=== PATIENT | female | born 1990 | race Caucasian/White ===

== ENCOUNTER 2019-03-15 13:41 | Emergency (ER) | payer SELFPAY ==
[2019-03-15 14:35] LABS: Absolute Lymphocytes (CBC) 1.7 K/uL (0.7-4.9); Basophils % 0.5 % (0-1.3); Eosinophils % 0.3 % (0-4.4); Hematocrit 38.8 % (36.0-45.0); Lymphocytes % 15.5 % (15.3-44.8); MPV 10.6 fL (7.6-11.3); Monocytes % 10.1 % (3.3-12.3); RBC Red Blood Cell Count 4.31 M/uL (3.86-4.86)
[2019-03-15] MEDS ORDERED: NA CHLORIDE 0.9% 500 ML ONE (14:35)
[2019-03-15 14:40] LABS: Protime INR 1.04
[2019-03-15 14:52] LABS: Urine Blood NEGATIVE (NEG); Urine Glucose NEGATIVE (NEG); Urine Protein NEGATIVE (NEG); Urine Specific Gravity 1.015 (1.005-1.030)
[2019-03-15 14:56] LABS: Urine Bacteria <20 /HPF (<20); Urine Culture Reflex Order NOT NEEDED; Urine RBC <5 /HPF (NONE SEEN)
[2019-03-15 14:56] LABS: ALT/SGPT 34 U/L (12-78); AST/SGOT 35 U/L (15-37); Albumin 3.9 g/dL (3.4-5.0); Alkaline Phosphatase 111 U/L (45-117); BUN Blood Urea Nitrogen 12 mg/dL (7-18); Bicarbonate 28 mmol/L (21-32); Bilirubin Direct 0.1 mg/dL (0-0.2); Bilirubin Total 0.3 mg/dL (0.2-1.0); Glucose Level 79 mg/dL (74-106); NT PRO-BNP 53 pg/mL (<125); Potassium 3.1 mmol/L (3.5-5.1); Protein, Total 7.6 g/dL (6.4-8.2); Sodium Level 141 mmol/L (136-145); Troponin (Emerg Dept Use Only) < 0.02 ng/mL (0.0-0.045)
--- NOTE | 2019-03-15 15:01 | RAD REPORT ---
EXAM DESCRIPTION: Sonny Single View03/15/2019 2:34 pm CLINICAL HISTORY: Chest pain COMPARISON: none FINDINGS: The lungs appear clear of acute infiltrate. The heart is normal size IMPRESSION: No acute abnormalities displayed
[2019-03-15] MEDS ORDERED: POTASSIUM 25 MEQ EFFERV TAB ONE (16:21)
--- NOTE | 2019-03-15 16:35 | ER ---
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 Pt also c/o palpitations. Pt states "I even took my Xanax because I thought I was having a panic attack but it hasn't helped". Transition of care: patient was not received from another setting of care. Onset of symptoms was March 15, 2019. Risk Assessment: Do you want to hurt yourself or someone else? Patient reports no desire to harm self or others. Initial Sepsis Screen: Does the patient meet any 2 criteria? No. Patient's initial sepsis screen is negative. Does the patient have a suspected source of infection? No. Patient's initial sepsis screen is negative. Care prior to arrival: None. 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 - Social history:: Smoking status: Patient uses tobacco products, smokes one-half pack cigarettes per day. - Ebola Screening: : No symptoms or risks identified at this time. Screenin:35 Abuse screen: Denies threats or abuse. Denies injuries from another. Nutritional aj screening: No deficits noted. Tuberculosis screening: No symptoms or risk factors identified. Fall Risk None identified. Assessment: 14:35 General: Appears in no apparent distress. comfortable, Behavior is cooperative, aj anxious. Pain: Denies pain. Neuro: Level of Consciousness is awake, alert, obeys commands, Oriented to person, place, time, situation, Appropriate for age. Respiratory: Airway is patent Respiratory effort is even, unlabored, Respiratory pattern is regular, symmetrical. Derm: Skin is intact, is healthy with good turgor, Skin is pink, warm \\T\\ dry. normal. 14:35 Cardiovascular: Reports palpitations. aj 16:42 Reassessment: Patient appears in no apparent distress at this time. No changes from aj previously documented assessment. Patient and/or family updated on plan of care and expected duration. Pain level reassessed. Patient is alert, oriented x 3, equal unlabored respirations, skin warm/dry/pink. Patient denies pain at this time. Patient states feeling better. Vital Signs: 13:50 BP 113 / 61; Pulse 109; Resp 18 S; Temp 98.2(TE); Pulse Ox 100% on R/A; Weight 86.18 kg aa5 (R); Height 5 ft. 4 in. (162.56 cm) (R); Pain 0/10; 14:35 BP 114 / 77; Pulse 97; Resp 20; Pulse Ox 100% on R/A; aj 15:19 BP 119 / 77; Pulse 115; Resp 24; Temp 98.0(O); Pulse Ox 100% on R/A; 5 16:18 BP 111 / 76; Pulse 93; Resp 20; Pulse Ox 100% on R/A; aj 13:50 Body Mass Index 32.61 (86.18 kg, 162.56 cm) aa5 ED Course: 13:42 Patient arrived in ED. as 13:49 Triage completed. aa5 13:51 Arm band placed on Patient placed in an exam room, on a stretcher. aa5 13:55 Awilda Alas, CARMELITA is Primary Nurse. aj 14:02 Etienne Hernández PA is PHCP. [facility] 14:02 Nik Bergman MD is Attending Physician. jmm 14:30 Basic Metabolic Panel Sent. aj 14:30 CBC with Diff Sent. aj 14:30 Basic Metabolic Panel Sent. aj 14:30 CBC with Automated Diff Sent. aj 14:30 Liver (Hepatic) Function Sent. aj 14:30 LFT's Sent. aj 14:30 Magnesium Sent. aj 14:30 NT PRO-BNP Sent. aj 14:30 PT-INR Sent. aj 14:30 Troponin (emerg Dept Use Only) Sent. aj 14:35 XRAY Chest (1 view) In Process Unspecified. EDMS 14:35 Patient has correct armband on for positive identification. Placed in gown. Bed in low aj position. Side rails up X 1. Pulse ox on. NIBP on. 14:35 D-Dimer Sent. aj 14:35 Liver (Hepatic) Function Sent. aj 14:35 Inserted saline lock: 22 gauge in right antecubital area, using aseptic technique. aj Blood collected. 16:42 No provider procedures requiring assistance completed. IV discontinued, intact, aj bleeding controlled, No redness/swelling at site. Pressure dressing applied. Administered Medications: 14:35 Drug: NS 0.9% 500 ml Route: IV; Rate: bolus; Site: right antecubital; aj 16:43 Follow up: Response: No adverse reaction; IV Status: Completed infusion; IV Intake: aj 500ml 16:09 Drug: Potassium Effervescent Tablet 50 mEq Route: PO; aj 16:43 Follow up: Response: No adverse reaction aj Intake: 16:43 IV: 500ml; Total: 500ml. aj Outcome: 16:35 Discharge ordered by . johnathon 16:42 Discharged to home ambulatory. aj 16:42 Condition: good 16:42 Discharge instructions given to patient, Instructed on discharge instructions, follow up and referral plans. Demonstrated understanding of instructions, follow-up care. 16:51 Patient left the ED. aj Signatures: Dispatcher [employer] Awilda Snow RN RN aj Mickail, Joel, PA PA jmm Martinez, Amelia as Calderon, Audri, RN RN Diana Guzmán [facility]
--- NOTE | 2019-03-15 16:35 | EDPHYS ---
Physician Documentation [facility] Name: Amber Osorio Age: 28 yrs Sex: Female : 1990 Arrival Date: 03/15/2019 Time: 13:42 Bed 18 Private MD: ED Physician Nik Bergman HPI: 03/15 13:48 This 28 yrs old Female presents to ER via Wheelchair with complaints of jmm Dizziness. 13:48 The patient presents with lightheadedness. Onset: The symptoms/episode began/occurred jmm gradually, just prior to arrival. Associated signs and symptoms: Pertinent negatives: chest pain. This is a 28 year old female with a history of htn, anxiety that presents to the ED with complaints of lightheadedness. Patient states over the past 2 days she has no slept well due to studying. Patient states she doubled her blood pressure medication due to increased swelling to her legs before her shift today. . 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 - Social history:: Smoking status: Patient uses tobacco products, smokes one-half pack cigarettes per day. - Ebola Screening: : No symptoms or risks identified at this time. ROS: 13:48 Constitutional: Negative for fever, chills, and weight loss, Cardiovascular: Negative jmm for chest pain, palpitations, and edema, Respiratory: Negative for shortness of breath, cough, wheezing, and pleuritic chest pain. 13:48 MS/extremity: Positive for swelling. 13:48 Neuro: Positive for near syncope. 13:48 All other systems are negative. Exam: 13:48 Head/Face: atraumatic. Eyes: EOMI, no conjunctival erythema appreciated ENT: Moist jmm Mucus Membranes Neck: Trachea midline, Supple Chest/axilla: Normal chest wall appearance and motion. 13:48 Constitutional: The patient appears in no acute distress, alert, awake. 13:48 Cardiovascular: Rate: normal, Rhythm: regular. 13:48 Respiratory: the patient does not display signs of respiratory distress, Respirations: normal, Breath sounds: are clear throughout. 13:48 Musculoskeletal/extremity: edema noted to the legs bilaterally.. 13:48 Skin: Appearance: Color: normal in color. 13:48 Neuro: Orientation: is normal, Mentation: is normal, Memory: is normal. 13:48 Psych: Behavior/mood is pleasant, cooperative. Vital Signs: 13:50 BP 113 / 61; Pulse 109; Resp 18 S; Temp 98.2(TE); Pulse Ox 100% on R/A; Weight 86.18 kg aa5 (R); Height 5 ft. 4 in. (162.56 cm) (R); Pain 0/10; 14:35 BP 114 / 77; Pulse 97; Resp 20; Pulse Ox 100% on R/A; aj 15:19 BP 119 / 77; Pulse 115; Resp 24; Temp 98.0(O); Pulse Ox 100% on R/A; mh5 16:18 BP 111 / 76; Pulse 93; Resp 20; Pulse Ox 100% on R/A; aj 13:50 Body Mass Index 32.61 (86.18 kg, 162.56 cm) aa5 MDM: 14:12 Patient medically screened. johnathon 16:31 Data reviewed: vital signs, nurses notes. Counseling: I had a detailed discussion with johnathon the patient and/or guardian regarding: the historical points, exam findings, and any diagnostic results supporting the discharge/admit diagnosis, lab results, the need for outpatient follow up, to return to the emergency department if symptoms worsen or persist or if there are any questions or concerns that arise at home. ED course: Patient states feeling much better in the ED. Symptoms may have been due to decreased sleep along with extra dose of lisinopril/hctz taken earlier today. Patient advised to increase sluid intake and given strict return precautions. patient otherwise given strict return precautions. patient understood and agrees with the plan of care. . 03/15 13:48 Order name: Urine Microscopic Only; Complete Time: 15:12 snw 03/15 14:12 Order name: Basic Metabolic Panel [facility] 03/15 14:12 Order name: CBC with Diff [facility] 03/15 14:12 Order name: LFT's [facility] 03/15 14:12 Order name: Magnesium; Complete Time: 15:12 [facility] 03/15 14:12 Order name: NT PRO-BNP; Complete Time: 15:12 [facility] 03/15 14:12 Order name: PT-INR; Complete Time: 14:51 [facility] 03/15 14:12 Order name: Troponin (emerg Dept Use Only); Complete Time: 15:12 [facility] 03/15 14:13 Order name: Basic Metabolic Panel; Complete Time: 15:12 [facility] 03/15 14:14 Order name: CBC with Automated Diff; Complete Time: 14:51 [facility] 03/15 14:14 Order name: Liver (Hepatic) Function; Complete Time: 15:12 [facility] 03/15 14:29 Order name: D-Dimer; Complete Time: 15:38 [facility] 03/15 14:50 Order name: Urine Dipstick--Ancillary (enter results); Complete Time: 14:54 03/15 14:50 Order name: Urine --Ancillary (enter results); Complete Time: 14:54 03/15 13:48 Order name: Urine Test (obtain specimen); Complete Time: 14:48 [facility] 03/15 13:48 Order name: Urine Dipstick-Ancillary (obtain specimen); Complete Time: 14:48 [facility] 03/15 14:12 Order name: XRAY Chest (1 view); Complete Time: 15:12 [facility] 03/15 14:12 Order name: EKG; Complete Time: 14:14 [facility] 03/15 14:12 Order name: Cardiac monitoring; Complete Time: 15:26 [facility] 03/15 14:12 Order name: EKG - Nurse/Tech; Complete Time: 15:26 [facility] 03/15 14:12 Order name: IV Saline Lock; Complete Time: 14:29 [facility] 03/15 14:12 Order name: Labs collected and sent; Complete Time: 14:29 [facility] 03/15 14:12 Order name: O2 Per Protocol; Complete Time: 14:29 [facility] 03/15 14:12 Order name: O2 Sat Monitoring; Complete Time: 14:29 [facility] Administered Medications: 14:35 Drug: NS 0.9% 500 ml Route: IV; Rate: bolus; Site: right antecubital; aj 16:43 Follow up: Response: No adverse reaction; IV Status: Completed infusion; IV Intake: aj 500ml 16:09 Drug: Potassium Effervescent Tablet 50 mEq Route: PO; aj 16:43 Follow up: Response: No adverse reaction aj Disposition: 17:34 Co-signature as Attending Physician, Nik Bergman MD. rn Disposition: 03/15/19 16:35 Discharged to Home. Impression: Syncope and collapse. - Condition is Stable. - Discharge Instructions: Near-Syncope. - Medication Reconciliation Form, Thank You Letter, Antibiotic Education, Prescription Opioid Use form. - Follow up: Private Physician; When: 2 - 3 days; Reason: Recheck today's complaints, Continuance of care, Re-evaluation by your physician. Signatures: Dispatcher [employer] EDAwilda Page RN RN Leslie Pichardo, CASH POSTING REPRESENTATIVE-C CASH POSTING REPRESENTATIVE-Csnw Etienne Hernández PA PA jmm Nieto, Roman, MD MD rn Calderon, Audri, CARMELITA RN aa5 Corrections: (The following items were deleted from the chart) 16:51 16:35 03/15/2019 16:35 Discharged to Home. Impression: Syncope and collapse. Condition aj is Stable. Forms are Medication Reconciliation Form, Thank You Letter, Antibiotic Education, Prescription Opioid Use. Follow up: Private Physician; When: 2 - 3 days; Reason: Recheck today's complaints, Continuance of care, Re-evaluation by your physician. johnathon
--- NOTE | 2019-03-15 20:09 | EKG ---
Test Date: 2019-03-15 Test Time: 14:49:29 Health Manager: NORMA MEASUREMENT RESULTS: Intervals: Rate: 87 VT: 154 QRSD: 82 QT: 380 QTc: 457 [place]: P: 25 VT: 154 QRS: 57 T: 64 INTERPRETIVE STATEMENTS: Normal sinus rhythm Normal ECG No previous ECG available for comparison Electronically Signed On 03-15-19 20:08:15 CDT by Frankie Wolff
== END 2019-03-15 16:51 | disposition home or self-care (01) ==
LOC: ER 13:41
DX: R55 Syncope and collapse (principal); F17.210 Nicotine dependence, cigarettes, uncomplicated; F41.8 Other specified anxiety disorders; I10 Essential (primary) hypertension
CPT/HCPCS: 36415; 71045; 80048; 80076; 81003; 81015; 81025; 83735; 83880; 84484; 85025; 85379; 85610; 93005; 96360; 96361; 99284

== ENCOUNTER 2020-03-05 06:30 | Emergency (ER) | payer SELFPAY ==
--- OUTSIDE RECORDS SUMMARY | 2020-03-05 06:32 | XMS REPORT | Continuity of Care Document ---
:1990 Author Organization [facility] t Address [address] [place] [address] Care Team Providers Name Role Phone Pob1, [facility] Attending Clinician Unavailable Problems This patient has no known problems. Allergies, Adverse Reactions, Alerts This patient has no known allergies or adverse reactions. Medications This patient has no known medications. Procedures This patient has no known procedures. Encounters Start End Encounter Admission Attending Care Care Encounter Source Date/Time Date/Time Type Type Clinicians Facility Department ID 2020-02-25 2020-02-25 Urgent Pob1, Acute [facility] [id number] 13:08:04 13:28:04 [facility] [id number] [place] [id number] [place] [id number] [address] Results This patient has no known results.
--- OUTSIDE RECORDS SUMMARY | 2020-03-05 06:32 | XMS REPORT | Summary of Care ---
:1990 Author Organization [facility] - [facility] Address [address] [place] [id number] Care Team Providers Name Role Phone Nohemy Hu Insurance Hmo Maritza Baird [facility] Primary [facility] Provider Reason for Visit Reason Comments Diarrhea resolved 02/25/20 6am WHEEZING pt reports hearing wheezing Fatigue Encounter Details Date Type Department Care Team Description 02/25/2020 Urgent Care [facility] Family Tanya Armendariz PA [address] [place] [address] [place] [address] Acute URI (Primary Dx); Medicine - [facility] Exposure to Covid-19 Virus [address] [place] [address] Allergies Active Allergy Reactions Severity Noted Date Comments Paroxetine Hcl Other - See comments 06/10/2013 Myocl onus as per her doctor. Whole body was twitching documented as of this encounter (statuses as of 02/25/2020) Medications Medication Sig Dispensed Refills Start Date End Date Status ALPRAZOLAM (XANAX Take 1 mg 0 Ac tive ORAL) by mouth 3 (three) times daily. lisinopril-hydrochlo Take 1 0 Active rothiazide tablet by (PRINZIDE,ZESTORETIC mouth ) 10-12.5 mg per daily. tablet ibuprofen (MOTRIN Take 1 30 tablet 3 12/05/2016 A ctive IB) 200 mg tablet by tabletIndications: mouth every ASCUS with positive 6 (six) high risk human hours as papillomavirus of needed for vagina Pain (scale 4-6). multivitamin Take 1 0 12/05/2016 Active tabletIndications: tablet by ASCUS with positive mouth high risk human daily. papillomavirus of vagina dextroamphetamine-am TAKE 1 0 02/22/2020 Active phetamine 20 mg TABLET BY tablet MOUTH THREE TIMES DAILY FOR 30 DAYS gabapentin (GRALISE) Take 1 0 Discontinued 300 mg tablet tablet by 0 (Disco ntinued by mouth 2 another (two) times clinicia n) daily. 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 12/05/2016 Hemorrhoids, internal 11/29/2016 ASCUS with positive high risk HPV 11/23/2015 Overview: colpo 11/23/15 Lump or mass in breast 10/25/2015 Well woman exam 10/25/2015 Contraceptive management 10/25/2015 Dysmenorrhea 10/25/2015 Generalized anxiety disorder 10/06/2014 Tobacco use disorder 06/10/2013 Morbid obesity 06/10/2013 Overview: ICD10 Diagnosis Term Transport Medic Utility documented as of this encounter (statuses as of 02/25/2020) Resolved Problems Problem Noted Date Resolved Date Nexplanon removal 10/25/2015 12/10/2017 Encounter for routine gynecological examination 06/10/2013 08/12/2013 Overview: ICD10 Diagnosis Term Transport Medic Utility Other general counseling and advice for contraceptive 201201/12/2015 management Rubella immune 06/10/2013 10/25/2015 documented as of this encounter (statuses as of 02/25/2020) Immunizations Name Administration Dates Next Due Rubella 12/11/2004 TDAP 11/08/2012 documented as of this encounter Social History Tobacco Use Types Packs/Day Years Used Date Current Every Day Smoker Cigarettes 12 Sta rted: 08/11/2005 Smokeless Tobacco: Never Used Comments: 5 cigarettes per day; Alcohol Use Drinks/Week oz/Week Comments Yes 0 Glasses of wine 5.0 socially 1 Cans of beer 2 Shots of liquor 2 Standard drinks or equivalent Sex Assigned at Date Recorded Not on file Job Start Date Occupation Industry Not on file Not on file Not on file Travel History Travel Start Travel End No recent travel history available. COVID-19 Exposure Response Date Recorded In the last month, have you been in contact with No / Unsure 02/25/2020 1:23 PM CDT someone who was confirmed or suspected to have Coronavirus / COVID-19? documented as of this encounter Last Filed Vital Signs Vital Sign Reading Time Taken Comments Blood Pressure 122/64 02/25/2020 1:26 PM CDT Pulse 98 02/25/2020 1:26 PM CDT Temperature 37 C (98.6 F) 02/25/2020 1:26 PM CDT Respiratory Rate 17 02/25/2020 1:26 PM CDT Oxygen Saturation 99% 02/25/2020 1:26 PM CDT Inhaled Oxygen Concentration - - Weight 93 kg (205 lb) 02/25/2020 1:26 PM CDT Height 162.6 cm (5' 4") 02/25/2020 1:26 PM CDT Body Mass Index 35.19 02/25/2020 1:26 PM CDT documented in this encounter Progress Notes Sneha Armendariz PA - 02/25/2020 1:00 PM CDT Cc: Chief Complaint Patient presents with Diarrhea resolved 02/25/20 6am WHEEZING pt reports hearing wheezing Fatigue Amber Osorio is a 29 year old female. Patient presents with URI symptoms that began 3 days ago. Travel: no. COVID19 exposure? Positive coworker URI Presenting symptoms: congestion, cough (dry ), fatigue and rhinorrhea Presenting symptoms: no ear pain, no facial pain, no fever and no sore throat Duration: 3 days Timing: Intermittent Chronicity: New Worsened by: Nothing Ineffective treatments: otc nsaids. Associated symptoms: headaches (mild intermittent) and wheezing (resolved 2 days ago) Associated symptoms: no arthralgias, no myalgias, no neck pain, no sinus pain, no sneezing and no swollen glands Risk factors: chronic cardiac disease (HTN) and sick contacts Risk factors: not elderly, no chronic kidney disease, no chronic respiratory disease, no diabetes mellitus, no immunosuppression, no recent illness and no recent travel Allergies is allergic to paxil [paroxetine hcl]. Medications Current Outpatient Medications Medication Sig Dispense Refill dextroamphetamine-amphetamine 20 mg tablet TAKE 1 TABLET BY MOUTH THREE TIMES DAILY FOR 30 DAYS ibuprofen (MOTRIN IB) 200 mg tablet Take 1 tablet by mouth every 6 (six) hours as needed for Pain (scale 4-6). 30 tablet 3 multivitamin tablet Take 1 tablet by mouth daily. lisinopril-hydrochlorothiazide (PRINZIDE,ZESTORETIC) 10-12.5 mg per tablet Take 1 tablet by mouth daily. ALPRAZOLAM (XANAX ORAL) Take 1 mg by mouth 3 (three) times daily. No current facility-administered medications for this visit. Histories Past Medical History: Diagnosis Date Abnormal cervical cytology 11/29/2016 asc-h Anxiety ASCUS with positive high risk HPV cervical 10/06/2014 ASCUS with positive high risk HPV cervical 10/25/2015 Dysmenorrhea 10/25/2015 Hypertension Papanicolaou smear of cervix with low grade squamous intraepithelial lesion (LGSIL) 06/16/2013 lgsil Tobacco use disorder 06/10/2013 Past Surgical History: Procedure Laterality Date COLPOSCOPY 11/23/2015 benign COLPOSCOPY 08/12/2013 hpv Social History Socioeconomic History Marital status: Single Spouse name: Not on file Number of children: 0 Years of education: 12+ Highest education level: Not on file Occupational History Occupation: [email or web address] Employer: [employer] Social Needs Financial resource strain: Not on file Food insecurity: Worry: Not on file Inability: Not on file Transportation needs: Medical: Not on file Non-medical: Not on file Tobacco Use Smoking status: Current Every Day Smoker Years: 12.00 Types: Cigarettes Start date: 08/11/2005 Smokeless tobacco: Never Used Tobacco comment: 5 cigarettes per day; Substance and Sexual Activity Alcohol use: Yes Alcohol/week: 5.0 standard drinks Types: 1 Cans of beer, 2 Shots of liquor, 2 Standard drinks or equivalent per week Comment: socially Drug use: No Sexual activity: Yes Partners: Male control/protection: Injection Lifestyle Physical activity: Days per week: Not on file Minutes per session: Not on file Stress: Not on file Relationships Social connections: Talks on phone: Not on file Gets together: Not on file Attends jew service: Not on file Active member of club or organization: Not on file Attends meetings of clubs or organizations: Not on file Relationship status: Not on file Intimate partner violence: Fear of current or ex partner: Not on file Emotionally abused: Not on file Physically abused: Not on file Forced sexual activity: Not on file Other Topics Concern Service Not Asked Blood Transfusions No Caffeine Concern Not Asked Occupational Exposure Not Asked Hobby Hazards Not Asked Sleep Concern Not Asked Stress Concern Not Asked Weight Concern Not Asked Special Diet Not Asked Back Care Not Asked Exercise Not Asked Bike Helmet Not Asked Seat Belt Not Asked Self-Exams Not Asked Social History Narrative Pt denies current or past physical, sexual or emotional abuse. Pt states she feels safe at home. Family History Problem Relation Age of Onset Asthma Brother Heart Maternal Grandmother Arthritis NoFHx defects NoFHx Breast Cancer NoFHx Colon Cancer NoFHx Ovarian Cancer NoFHx Uterine Cancer NoFHx Cancer NoFHx Depression NoFHx Diabetes NoFHx Genetic NoFHx High cholesterol NoFHx Hypertension NoFHx Mental retardation NoFHx Neurological NoFHx Osteoporosis NoFHx Psychiatry NoFHx Other - see comments NoFHx Review of Systems Constitutional: Positive for fatigue. Negative for activity change, appetite change, chills, diaphoresis and fever. HENT: Positive for congestion and rhinorrhea. Negative for ear discharge, ear pain, facial swelling,postnasal drip, sinus pressure, sinus pain, sneezing, sore throat, trouble swallowing and voice change. Eyes: Negative for pain, discharge, redness and itching. Respiratory: Positive for cough (dry ) and wheezing (resolved 2 days ago). Negative for chest tightness and shortness of breath. Cardiovascular: Negative for chest pain, palpitations and leg swelling. Gastrointestinal: Positive for diarrhea (resolved). Negative for abdominal pain, constipation, nausea and vomiting. Musculoskeletal: Negative for arthralgias, back pain, gait problem, joint swelling, myalgias, neck pain and neck stiffness. Skin: Negative for color change and rash. Neurological: Positive for headaches (mild intermittent). Negative for dizziness, syncope, weakness and light-headedness. Psychiatric/Behavioral: Negative for confusion. Vital Signs BP 122/64 | Pulse 98 | Temp 37 C (98.6 F) (Oral) | Resp 17 | Ht 5' 4" (1.626 m) | Wt 205 lb(93 kg) | LMP 02/08/2020 | SpO2 99% | BMI 35.19 kg/m Physical Exam Constitutional: She is oriented to person, place, and time. She appears well- developed and well-nourished. No distress. HENT: Head: Normocephalic and atraumatic. Right Ear: External ear normal. Left Ear: External ear normal. Nose: Nose normal. Eyes: Conjunctivae are normal. Right eye exhibits no discharge. Left eye exhibits no discharge. Neck: Normal range of motion. Cardiovascular: Normal rate, regular rhythm and normal heart sounds. Pulmonary/Chest: Effort normal and breath sounds normal. No stridor. No respiratory distress. She has no wheezes. She has no rales. Abdominal: Soft. Bowel sounds are normal. She exhibits no distension. There is no tenderness. Musculoskeletal: Normal range of motion. She exhibits no edema. Neurological: She is alert and oriented to person, place, and time. Skin: Skin is warm and dry. No rash noted. She is not diaphoretic. Psychiatric: She has a normal mood and affect. Her behavior is normal. Nursing note and vitals reviewed. Assessment/Plan Acute URI (primary encounter diagnosis) Exposure to Covid-19 Virus Plan: COVID-19 (PCR MOLECULAR TESTING), COVID-19 (PCR MOLECULAR TESTING) Afebrile, well appearing, non-toxic, NAD. HR < 100, lungs CTAB, O2 sat 99%. COVID-19 ordered Educated on the following at home care: -Offered tessalon but declines. Encouraged to take OTC Mucinex DM or Robitussin DM as needed -Increase water intake -Take over the counter vitamin C/multivitamin with vitamin C -Take Tylenol as needed, avoid nsaids -REST -Smoking cessation recommended -Wash hands often -Cover mouth when coughing -Wear mask with in the same room/car as others -Gargle with warm salt water as needed -Drink warm liquids as needed. -Throat lozenges as needed -Quarantine until your COVID results are back -Stay in your own bedroom and use a separate bathroom -Keep at least 6 feet from you and others -Avoid sharing personal household items, dishes, glasses, cups, towels -Clean high traffic/touch areas daily. These include but not limited to: doorknobs, refrigerator/cabinet handles, phones, keyboards, tablets, light switches. -Monitor your symptoms. Take your temperature 2 times daily. -Follow-up with PCP as needed, if no improvement. -Monitor your symptoms. Go to the ED if worsening symptoms: chest pain, difficulty breathing, coughing up blood, weakness, dizziness, passing out, AMS. -CDC handout provided Pt ed/precautions given in detail regarding conditions/medicaitons. Er precautions given. Pt reportsunderstanding and agrees. rtc if s/s worsen or do not improve; Plan of care, desired health behaviors, goals, Ddx, & any prescribed or OTC medications discussed with patient. Education resources & self management tools provided and reviewed with AVS. Patient/guardian/family verbalized understanding & agrees to plan of care. Barriers to care: NONE Ability to manage care: Good This visit did not involve counseling and coordination that comprised more than 50% of the visit time. sahmi Alcantar RN - 02/25/2020 1:00 PM CDT Amber Osorio is a 29 year old female in office for the following: Chief Complaint Patient presents with Diarrhea resolved 02/25/20 6am WHEEZING pt reports hearing wheezing Fatigue Patient educated on plan of care for visit, swabbing technique, risks and benefits of test and length of time to receive results. Verbal consent obtained to perform test. CDC Fact Sheet for PatientsnCoV Diagnostic Panel dated 11/15/2019 provided. All vitals taken. Allergies reviewed. All medications reviewed. Fall risk assessed. Level of pain 0. [facility] #[id number] [place] [id number] [address] [facility] [address] Rashmi Alcantar RN 02/25/2020 1:37 PM documented in this encounter Plan of Treatment Name Type Priority Associated Diagnoses Order S chedule COVID-19 (PCR MOLECULAR LAB Routine Acute UR I Expected: 02/25/2020, TESTING) Exposure to Covid-19 Expires : 02/24/2021 Virus Health Maintenance Due Date Last Done Comments VARICELLA VACCINES (1 of 2 - 1989 2-dose childhood series) PNEUMOCOCCAL 0-64 YEARS COMBINED 1994 SERIES (1 of 1 - PPSV23) Depression Screening 2000 INFLUENZA VACCINE (Season Ended) 2020 PAP SMEAR 12/10/2020 12/10/2017, 11/29/2016, 10/25/2015, Additional history exists DTaP,Tdap,and Td Vaccines (2 - Td) 11/08/2022 11/08/2012 documented as of this encounter Results Not on filedocumented in this encounter Visit Diagnoses Diagnosis Acute URI - Primary Acute upper respiratory infections of un specified site Exposure to Covid-19 Virus documented in this encounter Additional Health Concerns Infection Onset Date Last Indicated Resolved Time Contact - ESBL 08/06/2013 08/06/2013 documented as of this encounter Advance Directives Name Relationship Healthcare Agent Relationship Co mmunication Sagenohemy Zamudio Primary healthcare agent
[2020-03-05 07:04] LABS: Absolute Lymphocytes (CBC) 3.6 K/uL (0.7-4.9); Hematocrit 36.6 % (36.0-45.0); Lymphocytes % 28.3 % (15.3-44.8); MPV 10.1 fL (7.6-11.3); RBC Red Blood Cell Count 3.94 M/uL (3.86-4.86)
[2020-03-05 07:09] LABS: Protime INR 0.98
[2020-03-05 07:23] LABS: ALT/SGPT 23 U/L (12-78); AST/SGOT 21 U/L (15-37); Albumin 3.6 g/dL (3.4-5.0); Alkaline Phosphatase 85 U/L (45-117); BUN Blood Urea Nitrogen 16 mg/dL (7-18); Bicarbonate 23 mmol/L (21-32); Bilirubin Direct < 0.1 mg/dL (0-0.2); Bilirubin Total 0.2 mg/dL (0.2-1.0); Glucose Level 101 mg/dL (74-106); Magnesium 1.7 mg/dL (1.8-2.4); NT PRO-BNP 9 pg/mL (<125); Potassium 3.3 mmol/L (3.5-5.1); Protein, Total 7.3 g/dL (6.4-8.2); Sodium Level 137 mmol/L (136-145); Troponin (Emerg Dept Use Only) < 0.02 ng/mL (0.0-0.045)
[2020-03-05] MEDS ORDERED: NA CHLORIDE 0.9% 1,000 ML ONE (07:27)
[2020-03-05 08:04] LABS: Urine Blood NEGATIVE (NEG); Urine Glucose NEGATIVE (NEG); Urine Specific Gravity 1.015 (1.005-1.030)
[2020-03-05 08:05] LABS: Urine Protein NEGATIVE (NEG)
--- NOTE | 2020-03-05 08:24 | RAD REPORT ---
EXAM DESCRIPTION: CT - Chest For Pe Angio - 03/05/2020 8:11 am CLINICAL HISTORY: Chest pain. SOB COMPARISON: <Comparisons> TECHNIQUE: CT angiogram of the pulmonary arteries was performed with MIP. All CT scans are performed using dose optimization technique as appropriate and may include automated exposure control or mA/KV adjustment according to patient size. FINDINGS: Evaluation for pulmonary embolism is generally suboptimal due to bolus timing issues, with out gross evidence of PE. No acute aortic finding demonstrated. The lungs are clear. No significant pericardial or pleural fluid. No concerning bony finding. IMPRESSION: Generally suboptimal evaluation for pulmonary embolism due to bolus timing issues. Gross ly, no evidence of PE is seen. If there is continued clinical concern for possible PE, V/Q scan follo w-up could be obtained. No acute lung findings.
--- NOTE | 2020-03-05 08:55 | EKG ---
Test Date: 2020-03-05 Test Time: 06:51:44 Foreign Languages Department Chair: ZEINAB MEASUREMENT RESULTS: Intervals: Rate: 97 NM: 146 QRSD: 80 QT: 368 QTc: 467 [place]: P: 21 NM: 146 QRS: 50 T: 46 INTERPRETIVE STATEMENTS: Normal sinus rhythm Normal ECG Compared to ECG 03/15/2019 14:49:29 No significant changes Electronically Signed On 03-05-20 08:55:06 CDT by Matty Clemente
--- NOTE | 2020-03-05 09:06 | EDPHYS ---
Physician Documentation [facility] Name: Amber Osorio Age: 29 yrs Sex: Female : 1990 Arrival Date: 03/05/2020 Time: 06:33 Bed 6 Private MD: ED Physician Justen Smith HPI: 03/05 07:03 This 29 yrs old Female presents to ER via Ambulatory with complaints of pm1 Breathing Difficulty. 07:03 The patient has shortness of breath at rest. Onset: The symptoms/episode began/occurred pm1 2 day(s) ago. Duration: The symptoms are continuous. The patient's shortness of breath is aggravated by nothing, is alleviated by nothing. Associated signs and symptoms: Pertinent positives: non-productive cough, Pertinent negatives: chest pain, fever, nausea, vomiting, Diarrhea. Severity of symptoms: in the emergency department the symptoms are worse. The patient has not experienced similar symptoms in the past. The patient has not recently seen a physician. 07:03 Patient with N/V/D last week. Went to [place] and had covid test. Result - negative. pm1 N/V/D has resolved. Historical: - Allergies: 06:34 Paxil; sg 06:34 SSRI; sg - Home Meds: 09:00 lisinopril-hydrochlorothiazide Oral [Active]; Xanax 1 mg Oral tab 1 tab [Active]; ph - PMHx: 06:34 Anxiety; Hypertension; sg - PSHx: 06:34 None; sg - Immunization history:: Adult Immunizations up to date. - Social history:: Smoking status: Patient denies any tobacco usage or history of. ROS: 07:03 Eyes: Negative for injury, pain, redness, and discharge, ENT: Negative for injury, pm1 pain, and discharge, Neck: Negative for injury, pain, and swelling, Cardiovascular: Negative for chest pain, palpitations, and edema. 07:03 Abdomen/GI: Negative for abdominal pain, nausea, vomiting, diarrhea, and constipation, Back: Negative for injury and pain, : Negative for injury, bleeding, discharge, and swelling, MS/Extremity: Negative for injury and deformity, Skin: Negative for injury, rash, and discoloration, Neuro: Negative for headache, weakness, numbness, tingling, and seizure. 07:03 Constitutional: Positive for body aches, Negative for fever, poor PO intake. 07:03 Respiratory: Positive for cough, shortness of breath, Negative for sputum production, wheezing. Exam: 07:05 Constitutional: This is a well developed, well nourished patient who is awake, alert, pm1 and in no acute distress. Head/Face: Normocephalic, atraumatic. 07:05 Neck: Trachea midline, no thyromegaly or masses palpated, and no cervical lymphadenopathy. Supple, full range of motion without nuchal rigidity, or vertebral point tenderness. No Meningismus. Chest/axilla: Normal chest wall appearance and motion. Nontender with no deformity. No lesions are appreciated. 07:05 Back: No spinal tenderness. No costovertebral tenderness. Full range of motion. 07:05 Skin: Warm, dry with normal turgor. Normal color with no rashes, no lesions, and no evidence of cellulitis. MS/ Extremity: Pulses equal, no cyanosis. Neurovascular intact. Full, normal range of motion. 07:05 ENT: External ear(s): are unremarkable, Ear canal(s): are normal, TM's: are normal, Nose: is normal, Mouth: Posterior pharynx: Airway: no evidence of obstruction, Tonsils: bilaterally enlarged, with erythema, no exudate, no ulcerations, peritonsillar mass, is not appreciated, pooling of secretions, is not appreciated. 07:05 Cardiovascular: Rate: tachycardic, actual rate is 105 bpm, Rhythm: regular, Pulses: no pulse deficits are appreciated, Edema: is not appreciated. 07:05 Respiratory: Exam negative for acute changes, respiratory distress, shortness of breath, the patient does not display signs of respiratory distress. 07:05 Abdomen/GI: Exam negative for acute changes, Inspection: abdomen appears normal, Palpation: abdomen is soft and non-tender, in all quadrants. 07:05 Neuro: Exam negative for acute changes, Orientation: is normal, Mentation: is normal, Motor: is normal, moves all fours. 07:05 Psych: Behavior/mood is anxious, Affect is animated, Oriented to person, place, time. Vital Signs: 06:58 BP 141 / 95; Pulse 105; Resp 17; Temp 98.6; Pulse Ox 100% on R/A; rv 07:24 BP 126 / 77; Pulse 112; Resp 18; Pulse Ox 99% on R/A; ph 08:25 BP 117 / 76; Pulse 105 MON; Resp 22; Pulse Ox 99% on R/A; sv 09:05 BP 116 / 64; Pulse 105; Resp 16; Pulse Ox 98% ; sv 09:13 Temp 98.7(TE); ph 08:25 Sinus tachycardia sv MDM: 06:39 Patient medically screened. pm1 07:28 Data reviewed: vital signs. pm1 08:59 Data interpreted: Pulse oximetry: on room air is 99 %. Interpretation: normal. pm1 09:00 Counseling: I had a detailed discussion with the patient and/or guardian regarding: the pm1 historical points, exam findings, and any diagnostic results supporting the discharge/admit diagnosis, lab results, radiology results, Patient resting in bed without any complaints of shortness of breath. Suboptimal CT chest scan but no gross evidence of PE. Given patient's current clinical presentation without shortness of breath on reexamination, PE is not likely and admission for a V/Q scan is not needed. 03/05 06:51 Order name: Basic Metabolic Panel pm03/05 06:51 Order name: CBC with Diff pm1 03/05 06:51 Order name: LFT's; Complete Time: 07:24 pm1 03/05 06:51 Order name: Magnesium; Complete Time: 07:24 pm03/05 06:51 Order name: NT PRO-BNP; Complete Time: 07:24 pm1 03/05 06:51 Order name: PT-INR; Complete Time: 07:13 pm1 03/05 06:51 Order name: Troponin (emerg Dept Use Only); Complete Time: 07:24 pm03/05 06:51 Order name: D-Dimer; Complete Time: 07:13 pm1 03/05 06:51 Order name: COVID-19 pm03/05 06:51 Order name: Flu; Complete Time: 07:54 pm1 03/05 06:51 Order name: Strep; Complete Time: 07:54 pm03/05 06:52 Order name: Basic Metabolic Panel; Complete Time: 07:24 EDMS 03/05 06:52 Order name: CBC with Automated Diff; Complete Time: 07:08 EDMS 03/05 08:01 Order name: Urine Dipstick--Ancillary (enter results); Complete Time: 08:40 em1 03/05 06:51 Order name: XRAY Chest (1 view) pm1 03/05 06:51 Order name: EKG; Complete Time: 06:54 pm1 03/05 06:51 Order name: Cardiac monitoring; Complete Time: 07:10 pm1 03/05 06:51 Order name: EKG - Nurse/Tech; Complete Time: 09:43 pm1 03/05 06:51 Order name: IV Saline Lock; Complete Time: 07:10 pm1 03/05 06:51 Order name: Labs collected and sent; Complete Time: 07:10 pm1 03/05 06:51 Order name: O2 Per Protocol; Complete Time: 07:10 pm1 03/05 06:51 Order name: O2 Sat Monitoring; Complete Time: 07:10 pm1 03/05 06:51 Order name: Droplet/Contact Precautions; Complete Time: 07:20 pm1 03/05 07:14 Order name: CT Chest For PE Angio; Complete Time: 08:40 pm1 03/05 08:00 Order name: Urine Dipstick-Ancillary (obtain specimen); Complete Time: 08:00 sv 03/05 08:01 Order name: Urine --Ancillary (enter results); Complete Time: 08:40 em1 03/05 08:00 Order name: Urine Test (obtain specimen); Complete Time: 08:00 sv EC:55 Rate is 97 beats/min. Rhythm is regular, Normal Sinus Rhythm with No ectopy. No Q pm1 waves. T waves are Normal. No ST changes noted. Clinical impression: Normal ECG. Administered Medications: 07:24 Drug: NS 0.9% 1000 ml Route: IV; Rate: 1000 ml; Site: right antecubital; ph 09:01 Follow up: Response: No adverse reaction; IV Status: Completed infusion; IV Intake: ph 1000ml 09:10 Drug: Bicillin L-A 1.2 million units Route: IM; Site: right gluteus; ph 09:43 Follow up: Response: No adverse reaction ph Disposition: 03/05/20 09:05 Discharged to Home. Impression: Streptococcal pharyngitis. - Condition is Stable. - Discharge Instructions: COVID-19, Strep Throat. - Medication Reconciliation Form, Thank You Letter, Antibiotic Education, Prescription Opioid Use form. - Follow up: Emergency Department; When: As needed; Reason: Worsening of condition. Follow up: Private Physician; When: 2 - 3 days; Reason: Recheck today's complaints, Continuance of care, Re-evaluation by your physician. - Problem is new. - Symptoms have improved. Addendum: 03/14/2020 16:36 Co-signature as Attending Physician, Justen Smith MD I agree with the assessment and t w4 plan of care. Signatures: Dispatcher [employer] EDLena Parks RN RN Rico Seo RN RN Saskia Go RN RN Martin Cali, SEPARATING MACHINE OPERATOR SEPARATING MACHINE OPERATOR pm1 Justen Smith MD MD tw4 Corrections: (The following items were deleted from the chart) 03/05 09:44 09:05 03/05/2020 09:05 Discharged to Home. Impression: Streptococcal pharyngitis. ph Condition is Stable. Forms are Medication Reconciliation Form, Thank You Letter, Antibiotic Education, Prescription Opioid Use. Follow up: Emergency Department; When: As needed; Reason: Worsening of condition. Follow up: Private Physician; When: 2 - 3 days; Reason: Recheck today's complaints, Continuance of care, Re-evaluation by your physician. Problem is new. Symptoms have improved. pm1
--- NOTE | 2020-03-05 09:06 | ER ---
Nurse's Notes [facility] Name: Amber Osorio Age: 29 yrs Sex: Female : 1990 Arrival Date: 03/05/2020 Time: 06:33 Bed 6 Private MD: Diagnosis: Streptococcal pharyngitis Presentation: 03/05 06:34 Acuity: MELISA 3 sg 06:34 Chief complaint: Patient states: Shortness of breath for 1-2 days, worsening this sg morning, pt reports ambulating increases the shortness of breath, states feels feverish but unsure of how high the temp has been. Coronavirus screen: Patient reports shortness of breath or difficulty breathing. Ebola Screen: Patient negative for fever greater than or equal to 101.5 degrees Fahrenheit, and additional compatible Ebola Virus Disease symptoms Patient denies exposure to infectious person. Patient denies travel to an Ebola-affected area in the 21 days before illness onset. No symptoms or risks identified at this time. Initial Sepsis Screen: Does the patient meet any 2 criteria? RR > 20 per min. Does the patient have a suspected source of infection? No. Patient's initial sepsis screen is negative. Risk Assessment: Do you want to hurt yourself or someone else? Patient reports no desire to harm self or others. Onset of symptoms was March 05, 2020. Care prior to arrival: None. 06:34 Method Of Arrival: Ambulatory sg 06:34 Transition of care: patient was not received from another setting of care. sg Triage Assessment: 06:58 General: Appears uncomfortable, Behavior is anxious. Respiratory: Reports shortness of rv breath at rest Onset: The symptoms/episode began/occurred yesterday, the patient has mild shortness of breath. Historical: - Allergies: 06:34 Paxil; sg 06:34 SSRI; sg - Home Meds: 09:00 lisinopril-hydrochlorothiazide Oral [Active]; Xanax 1 mg Oral tab 1 tab [Active]; ph - PMHx: 06:34 Anxiety; Hypertension; sg - PSHx: 06:34 None; sg - Immunization history:: Adult Immunizations up to date. - Social history:: Smoking status: Patient denies any tobacco usage or history of. Screenin:54 Abuse screen: Denies threats or abuse. Denies injuries from another. Nutritional rv screening: No deficits noted. Tuberculosis screening: No symptoms or risk factors identified. Fall Risk None identified. Assessment: 06:34 Reassessment: pt has been placed into a gown at this time. sg 06:52 General: Appears uncomfortable, Behavior is anxious. Pain: Denies pain. Neuro: Level of rv Consciousness is awake, alert, obeys commands, Oriented to person, place, time, situation. Cardiovascular: Patient's skin is warm and dry. Rhythm is sinus tachycardia. Respiratory: Airway is patent Respiratory effort is even, unlabored, Respiratory pattern is regular, Breath sounds are clear bilaterally. Derm: Skin is intact. 07:24 Reassessment: Patient appears in no apparent distress at this time. Patient and/or ph family updated on plan of care and expected duration. Pain level reassessed. Patient is alert, oriented x 3, equal unlabored respirations, skin warm/dry/pink. 09:13 Reassessment: Patient appears in no apparent distress at this time. Patient and/or ph family updated on plan of care and expected duration. Pain level reassessed. Patient is alert, oriented x 3, equal unlabored respirations, skin warm/dry/pink. D/C pending 15 minute shot time after Bicillin injection. Vital Signs: 06:58 BP 141 / 95; Pulse 105; Resp 17; Temp 98.6; Pulse Ox 100% on R/A; rv 07:24 BP 126 / 77; Pulse 112; Resp 18; Pulse Ox 99% on R/A; ph 08:25 BP 117 / 76; Pulse 105 MON; Resp 22; Pulse Ox 99% on R/A; sv 09:05 BP 116 / 64; Pulse 105; Resp 16; Pulse Ox 98% ; sv 09:13 Temp 98.7(TE); ph 08:25 Sinus tachycardia sv ED Course: 06:33 Patient arrived in ED. ag3 06:34 Triage completed. sg 06:34 Arm band placed on. sg 06:38 Martin Cali NP is PHCP. pm1 06:38 Justen Smith MD is Attending Physician. pm1 06:50 Initial lab(s) drawn, by ct, sent to lab. rv 06:52 Inserted saline lock: 18 gauge in right antecubital area, using aseptic technique. rv Blood collected. 06:57 Patient has correct armband on for positive identification. Placed in gown. Bed in low rv position. Call light in reach. Side rails up X 1. monitoring tech on. Pulse ox on. NIBP on. 07:05 Saskia Go RN is Primary Nurse. ph 07:15 Notified Nurse Practitioner and/or Physician Boat Canvas Maker And Installer of a critical lab result(s), D sg Dimer 562. 07:26 XRAY Chest (1 view) In Process Unspecified. EDMS 08:00 Basic Metabolic Panel Sent. sv 08:00 CBC with Diff Sent. sv 08:12 CT Chest For PE Angio In Process Unspecified. EDMS 08:18 Patient moved back from CT. sv 08:59 No provider procedures requiring assistance completed. ph 09:44 IV discontinued, intact, bleeding controlled, No redness/swelling at site. Pressure ph dressing applied. Administered Medications: 07:24 Drug: NS 0.9% 1000 ml Route: IV; Rate: 1000 ml; Site: right antecubital; ph 09:01 Follow up: Response: No adverse reaction; IV Status: Completed infusion; IV Intake: ph 1000ml 09:10 Drug: Bicillin L-A 1.2 million units Route: IM; Site: right gluteus; ph 09:43 Follow up: Response: No adverse reaction ph Intake: 09:01 IV: 1000ml; Total: 1000ml. ph Outcome: 09:05 Discharge ordered by . pm1 09:43 Discharged to home ambulatory. ph 09:43 Condition: good 09:43 Discharge instructions given to patient, Instructed on discharge instructions, follow up and referral plans. Demonstrated understanding of instructions, follow-up care. 09:44 Patient left the ED. ph Addendum: 03/08/2020 23:32 Addendum: Other pt has called requesting the results of the COVID swab. informed s g patient that a provider will contact her with results when they post at the number [phone], pt stated understanding. 03/11/2020 09:57 Addendum: COVID-19 Result: Negative result given to RN to notify pt. Notified pt of s s negative COVID 19 swab results. Pt advised that even with a negative test result they should remain in isolation until symptom free for 3 days without medication. Pt also advised to return to the ED for worsening symptoms. Signatures: Dispatcher [employer] Lena Wong, RN RN Rico Pryor, RN RN sg Andra Rosas, RN RN ss Saskia Go, RN RN Martin Cali, TESTER OPERATOR TESTER OPERATOR pm1 Joel Santos, RN RN Marquis, Akousa ag3
[2020-03-05] MEDS ORDERED: PEN G BENZ LA 1.2MU/2ML SYRINGE IM ONE (09:13)
[2020-03-05 09:59] VITALS: BP 116/64; O2SAT 98
[2020-03-05 10:00] VITALS: TEMP 98.7
--- NOTE | 2020-03-05 11:54 | RAD REPORT ---
EXAM DESCRIPTION: RAD - Chest Single View - 03/05/2020 7:25 am CLINICAL HISTORY: SOB Chest pain. COMPARISON: Chest Single View dated 03/15/2019 FINDINGS: Portable technique limits examination quality. The lungs are grossly clear. The heart is normal in size. No displaced fractures. IMPRESSION: No acute intrathoracic process suspected.
== END 2020-03-05 09:44 | disposition home or self-care (01) ==
LOC: ER 06:30
DX: J02.0 Streptococcal pharyngitis (principal); Z20.828 Contact with and (suspected) exposure to other viral communicable diseases; I10 Essential (primary) hypertension; F41.9 Anxiety disorder, unspecified; Z88.8 Allergy status to other drugs, medicaments and biological substances
CPT/HCPCS: 36415; 71045; 71275; 80048; 80076; 81003; 81025; 83735; 83880; 84484; 85025; 85379; 85610; 87081; 87804; 93005; 96360; 96361; 96372; 99285; J0561; J7030; Q9967; U0001

== ENCOUNTER 2022-03-25 08:21 | Emergency (ER) | payer SELFPAY ==
--- OUTSIDE RECORDS SUMMARY | 2022-03-25 08:24 | XMS REPORT | Continuity of Care Document ---
:1990 Author Organization [facility] t Address [address] [place] [address] Care Team Providers Name Role Phone Pob1, Care Clinic Attending Clinician Unavailable Kevon Baum Attending Clinician Payers Payer Name Policy Type Policy Number Effective Date Expiration Date [facility] [id number] 2016 CHOICE 00:00:00 Problems Condition Condition Condition Status Onset Resolution Last Treating Co mments Source Name Details Category Date Date Treatment Clinician Date Essential Essential Disease Active Uni vers hypertensi hypertensi 4-10 it y of on, benign [place], benign 00:[place] [facility] ASCUS with ASCUS with Disease Active U nivers positive positive 4-05 ity of high risk high risk 00:00: [place] human human 00 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 Hemorrhoid Hemorrhoid Disease Active U nivers s, s, 3-30 ity of internal internal 00:00: [place] 00 [facility] Branch ASCUS with ASCUS with Disease Active Overview : Univers positive positive 3-23 colpo ity of high risk high risk 00:00: 11/23/15 [place] as HPV HPV 00 Medical Branch Lump or Lump or Disease Active Univers mass in mass in 2-23 ity of breast breast 00:00: [place] 00 [facility] Branch Contracept Contracept Disease Active U arash geovanna geovanna 2-23 ity of management management [place] [facility] Dysmenorrh Dysmenorrh Disease Active U arash ea ea 2-23 ity of 00:00: [place] 00 Medical Branch Generalize Generalize Disease Active U arash d anxiety d anxiety 2-04 ity of disorder disorder 00:00: [place] 00 [facility] Tobacco Tobacco Disease Active 2012-09 Univers use use 0-09 ity of disorder disorder 00:00: [place] 00 [facility] Morbid Morbid Disease Active 2012-09 Overview: Univer s obesity obesity 0-09 ICD10 ity of 00:00: Diagnosis [place] 00 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 Medical s Whole Branch body was twitching PAROXETI DRUG Active Other-Cmnt 2012-09 Univ ers NE HCL INGREDI 0-09 ity of 00:00: [place] 00 [facility] Social History Social Habit Start Date Stop Date Quantity Comments Source History of 2005-08-11 Cigarette Smoker Universi ty of tobacco use 00:00:00 [facility] Sex Assigned At Universit y of [facility] Exposure to Not sure University of SARS-CoV-2 [facility] (event) [place] Alcohol intake 2020-02-25 2020-02-25 University of 00:00:00 00:00:00 [facility] Tobacco Comment 2016-07-13 2016-07-13 5 cigarettes per Uni versity of 00:00:00 00:00:00 day; [facility] Alcohol Comment 2014-10-06 2014-10-06 socially Universit y of 00:00:00 00:00:00 [facility] Smoking Status Start Date Stop Date Source Current every day smoker 2020-02-25 00:00:00 Uni versity of [facility] Medications Ordered Filled Start Stop Current Ordering Indication Dosage Frequency Signature Comments Components Source Medication Medication Date Date Medication? Clinician (SIG) Name Name gabapentin 2020- No 1{tbl} Take 1 Un cony (GRALISE) 02-24 tablet by ity of 300 mg 18:45: 00:00 mouth 2 [place] tablet 56 :00 (two) Medical times Branch daily. ALPRAZOLAM Yes 1mg Take 1 mg Un cony (XANAX 6-25 by mouth 3 ity of ORAL) 18:30: (three) [place] 28 times Medical daily. Branch lisinopril- Yes 1{tbl} Take 1 Un cony hydrochloro 6-25 tablet by ity of thiazide 18:30: mouth [place] (PRINZIDE,Z 28 daily. Medica l ESTORETIC) Branch 10-12.5 mg per tablet dextroamphe Yes TAKE 1 Univ ers tamine-amph 6-22 TABLET BY ity of etamine 20 00:00: MOUTH [place] mg tablet 00 THREE Medical TIMES Branch DAILY FOR 30 DAYS ibuprofen Yes [id number] 200mg Take 1 Univers (MOTRIN IB) 4-05 tablet by ity of 200 mg 00:00: mouth [place] tablet 00 every 6 Medical (six) Branch hours as needed for Pain (scale 4-6). multivitami Yes [id number] 1{tbl} Take 1 Univers n tablet 4-05 tablet by ity of 00:00: mouth [place] 00 daily. [facility] Immunizations Ordered Filled Immunization Date Status Comments [facility] e Immunization Name Name TDAP 2012-11-08 Completed University 00:00:00 [facility] Rubella 2004-12-11 Completed [facility] 00:00:00 [facility] Vital Signs Vital Name Observation Time Observation Value Comments Source Systolic blood 2020-02-25 18:26:00 122 mm[Hg] Univer sity of pressure [facility] Diastolic blood 2020-02-25 18:26:00 64 mm[Hg] [facility] [place] [facility] Heart rate 2020-02-25 18:26:00 98 /min [facility] Body temperature 2020-02-25 18:26:00 37 Xi [facility] Respiratory rate 2020-02-25 18:26:00 17 /min [facility] Body height 2020-02-25 18:26:00 162.6 cm [facility] Body weight 2020-02-25 18:26:00 92.987 kg [facility] BMI 2020-02-25 18:26:00 35.19 kg/m2 [facility] Oxygen saturation in 2020-02-25 18:26:00 99 /min University of Arterial blood by [facility] Pulse oximetry Branch Systolic blood 2020-02-25 18:26:00 122 mm[Hg] Univer sity of pressure [facility] Diastolic blood 2020-02-25 18:26:00 64 mm[Hg] Unive rsity of pressure [facility] Heart rate 2020-02-25 18:26:00 98 /min Universi ty of [facility] Body temperature 2020-02-25 18:26:00 37 Xi [facility] [place] [facility] ersity of [facility] Respiratory rate 2020-02-25 18:26:00 17 /min [facility] [place] [facility] Body height 2020-02-25 18:26:00 162.6 cm Universi ty of [facility] Body weight 2020-02-25 18:26:00 92.987 kg Universi ty [facility] BMI 2020-02-25 18:26:00 35.19 kg/m2 Universi ty [facility] Oxygen saturation in 2020-02-25 18:26:00 99 /min University Arterial blood by [facility] Pulse oximetry Branch Procedures This patient has no known procedures. Encounters Start End Encounter Admission Attending Care Care Encounter Source Date/Time Date/Time Type Type Clinicians Facility Department ID 2020-02-25 2020-02-25 Urgent Pob1, Acute [facility] [id number] 13:08:04 13:28:04 [facility] Health [id number] [place] [id number] Professio [id number] nal [facility] Office [address] 2020-02-25 2020-02-25 Urgent Pob1, Acute Care [facility] [id number]. [id number] Univers 13:08:04 13:28:04 [facility] Sneha Armendariz A Health [id number] ity of [place] [id number] [place] Professio [id number] [place] [address] Branch [address] 2020-02-25 2020-02-25 Outpatient R [facility] [id number] Univers 13:00:00 13:00:00 [id number] ity [facility] 2020-02-25 2020-02-25 Outpatient R [facility] [id number] Univers 13:00:00 13:00:00 [facility] Results This patient has no known results.
[2022-03-25] MEDS ORDERED: ONDANSETRON 4 MG/2 ML VIAL ONE (09:00)
[2022-03-25] MEDS ORDERED: PANTOPRAZOLE 40 MG INJ ONE (09:00)
[2022-03-25] MEDS ORDERED: NA CHLORIDE 0.9% 1,000 ML ONE (09:00)
[2022-03-25 09:27] LABS: Absolute Lymphocytes (CBC) 2.7 K/uL (0.7-4.9); Hematocrit 37.4 % (36.0-45.0); Lymphocytes % 30.3 % (15.3-44.8); MCV 87.7 fL (80-100); MPV 9.9 fL (7.6-11.3); RBC Red Blood Cell Count 4.26 M/uL (3.86-4.86)
[2022-03-25 09:41] LABS: Albumin 3.4 g/dL (3.4-5.0); Bilirubin Total 0.2 mg/dL (0.2-1.0); Potassium 3.6 mmol/L (3.5-5.1); Protein, Total 7.4 g/dL (6.4-8.2)
[2022-03-25 10:15] LABS: Urine Blood Negative (Negative); Urine Glucose Negative (Negative); Urine Protein Negative (Negative); Urine pH 7.5 (5.0-7.0)
[2022-03-25 10:27] LABS: Urine Bacteria <20 /HPF (<20); Urine RBC None Seen /HPF (None Seen)
--- NOTE | 2022-03-25 10:54 | RAD REPORT ---
EXAM DESCRIPTION: CTAbdomen Pelvis W Contrast - 03/25/2022 10:30 am CLINICAL HISTORY: vomiting COMPARISON: No comparisons TECHNIQUE: CT of the abdomen and pelvis was performed. All CT scans are performed using dose optimization technique as appropriate and may include automated exposure control or mA/KV adjustment according to patient size. FINDINGS: Lower chest: No acute abnormality. Liver: Hepatic steatosis Biliary: No biliary ductal dilatation. Stomach: No significant focal abnormality. Duodenum: No significant focal abnormality. Pancreas: No significant abnormality. Spleen: No significant abnormality. Adrenal: No suspicious lesions. Kidney/ureter: No hydronephrosis. No renal calculi. Retroperitoneum: No retroperitoneal adenopathy. Vascular: No aneurysm. Bowel: No significant focal abnormality. Normal appendix. Peritoneum: Presacral cystic and solid-appearing lesion (s) measuring 5.5 x 5 cm in aggregate. It may represent 2 lesions, 1 solid and the other cystic versus 1 single lesion. Process is separate from t he rectum. It does not contain macroscopic fat or calcification. Bladder: Circumferential thickening of the bladder with mild hyperenhancement. Reproductive: No adnexal masses. Bones: No acute fracture. Other: n/a IMPRESSION: 1. Mild bladder wall thickening and hyperenhancement. Correlate with urinalysis to exclu de cystitis. 2. Distal esophageal wall thickening suggesting esophagitis. 3. Cystic and solid presacral mass with differential that includes both benign (neurogenic) and malig nant etiologies (sarcoma). Nonemergent surgical referral is recommended.
[2022-03-25 11:17] LABS: Barbiturates NEGATIVE (NEGATIVE); Benzodiazepines NEGATIVE (NEGATIVE); Cocaine NEGATIVE (NEGATIVE); METHAMPHETAM POSITIVE (NEGATIVE); Methadone NEGATIVE (NEGATIVE); Opiates NEGATIVE (NEGATIVE); Phencyclidine NEGATIVE (NEGATIVE); THC Cannibis NEGATIVE (NEGATIVE)
--- NOTE | 2022-03-25 11:42 | EDPHYS ---
Physician Documentation [facility] Name: Amber Osorio Age: 31 yrs Sex: Female : 1990 Arrival Date: 03/25/2022 Time: 08:22 Bed 20 Private MD: ED Physician Lena Castaneda HPI: 03/25 08:45 This 31 yrs old Female presents to ER via Ambulatory with complaints of Vomiting, Sore cp Throat. 08:45 The patient presents to the emergency department with vomiting, that is intermittent, cp described as bright red blood. Onset: The symptoms/episode began/occurred this morning. 08:45 Associated signs and symptoms: Pertinent positives: throat discomfort and taste of cp blood when swallowing. Patient reports for past several weeks she has had intermittent vomiting that seems to be triggered after drinking alcohol. 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 - Social history:: Smoking status: Reported history of juuling and/or vaping. Patient uses alcohol, weekly. ROS: 08:50 Constitutional: Negative for body aches, chills, fever, poor PO intake. cp 08:50 Eyes: Negative for injury, pain, redness, and discharge. cp 08:50 ENT: Positive for sore throat, Negative for drainage from ear(s), ear pain, difficulty swallowing, difficulty handling secretions. 08:50 Cardiovascular: Negative for chest pain, edema, palpitations. 08:50 Respiratory: Negative for cough, shortness of breath, wheezing. 08:50 Abdomen/GI: Positive for abdominal pain, nausea and vomiting, hematemesis, Negative for diarrhea, constipation, anorexia, black/tarry stool, rectal bleeding. 08:50 Neuro: Negative for altered mental status, headache, weakness. 08:50 All other systems are negative. Exam: 08:55 Constitutional: The patient appears in no acute distress, alert, awake, non-toxic, well cp developed, well nourished. 08:55 Head/Face: Normocephalic, atraumatic. cp 08:55 Eyes: Periorbital structures: appear normal, Conjunctiva: normal, no exudate, no injection, Sclera: no appreciated abnormality, Lids and lashes: appear normal, bilaterally. 08:55 ENT: External ear(s): are unremarkable, Nose: is normal, Mouth: Lips: moist, Oral mucosa: pink and intact, moist, Posterior pharynx: Airway: no evidence of obstruction, patent, Tonsils: are normal in appearance, Uvula: midline, erythema, that is mild, exudate, is not appreciated. 08:55 Chest/axilla: Inspection: normal, Palpation: is normal, no crepitus, no tenderness. 08:55 Cardiovascular: Rate: tachycardic, Rhythm: regular. 08:55 Respiratory: the patient does not display signs of respiratory distress, Respirations: normal, no use of accessory muscles, no retractions, labored breathing, is not present, Breath sounds: are clear throughout, no decreased breath sounds, no stridor, no wheezing. 08:55 Abdomen/GI: Inspection: abdomen appears normal, Bowel sounds: active, all quadrants, Palpation: soft, in all quadrants, mild abdominal tenderness, in the epigastric area, rebound tenderness, is not appreciated, involuntary guarding, is not appreciated. 08:55 Back: pain, is absent, ROM is normal. Vital Signs: 08:31 BP 143 / 97; Pulse 106; Resp 19; Temp 98.2; Pulse Ox 99% ; Weight 99.79 kg; Height 5 ap3 ft. 4 in. (162.56 cm); 09:57 BP 136 / 102; Pulse 93; Resp 16; Pulse Ox 99% ; bp 10:40 BP 146 / 89; Pulse 79; Resp 16; Pulse Ox 100% ; bp 11:55 BP 136 / 91; Pulse 77; Resp 16; Pulse Ox 100% ; bp 08:31 Body Mass Index 37.76 (99.79 kg, 162.56 cm) ap3 MDM: 08:39 Patient medically screened. cp 11:42 Data reviewed: vital signs, nurses notes, lab test result(s), radiologic studies, CT cp scan. 11:42 Differential diagnosis: gastritis, cholecystitis, pancreatitis, viral gastroenteritis, cp gastroenteritis. Counseling: I had a detailed discussion with the patient and/or guardian regarding: the historical points, exam findings, and any diagnostic results supporting the discharge/admit diagnosis, lab results, radiology results, to return to the emergency department if symptoms worsen or persist or if there are any questions or concerns that arise at home. Special discussion: Based on the patient's Hx, exam, and Dx evaluation, there is no indication for emergent surgery or inpatient Tx. It is understood by the patient/guardian that if the Sx's persist or worsen they need to return immediately for re-evaluation. 03/25 08:46 Order name: CBC with Diff; Complete Time: 09:41 cp 03/25 09:41 Interpretation: Normal except: MCV 87.7. 03/25 08:46 Order name: CMP; Complete Time: 09:48 03/25 09:48 Interpretation: Normal except: CL 108; GLUC 107; BUN 6; GLOB 4.0; A/G 0.9. 03/25 08:46 Order name: Lipase; Complete Time: 09:48 03/25 08:46 Order name: Urine Microscopic Only; Complete Time: 10:42 03/25 11:03 Interpretation: Reviewed. 03/25 08:46 Order name: UDS; Complete Time: 11:32 03/25 11:32 Interpretation: Normal except: METHAMPHETAMINE POSITIVE. 03/25 08:47 Order name: COVID-19 SARS RT PCR (Document "Date of Onset" if Symptomatic); Complete cp Time: 10:42 03/25 08:47 Order name: Strep; Complete Time: 10:42 03/25 09:49 Order name: CT Abd/Pelvis - IV Contrast Only; Complete Time: 11:02 03/25 11:03 Interpretation: Report reviewed. 03/25 10:12 Order name: Throat Culture [facility] 03/25 10:15 Order name: Urine Dipstick-Ancillary; Complete Time: 10:42 EDNE 03/25 10:42 Interpretation: UPH 7.5; Reviewed. 03/25 10:16 Order name: Urine --Ancillary (enter results); Complete Time: 10:42 eb 03/25 11:04 Interpretation: Reviewed. 03/25 08:46 Order name: IV Saline Lock; Complete Time: 08:59 cp 03/25 08:46 Order name: Labs collected and sent; Complete Time: 09:00 cp 03/25 08:46 Order name: Urine Dipstick-Ancillary (obtain specimen); Complete Time: 10:16 cp 03/25 08:46 Order name: Urine Test (obtain specimen); Complete Time: 10:16 cp 03/25 11:39 Order name: PO challenge; Complete Time: 11:54 cp Administered Medications: 09:00 Drug: NS 0.9% 1000 ml Route: IV; Rate: 1 bolus; Site: right antecubital; bp 11:55 Follow up: IV Status: Completed infusion; IV Intake: 1000ml bp 09:00 Drug: Zofran (Ondansetron) 4 mg Route: IVP; Site: right antecubital; bp 11:55 Follow up: Response: No adverse reaction bp 09:00 Drug: ProTONIX (pantoprazole) 40 mg Route: IVP; Site: right antecubital; bp 11:54 Follow up: Response: No adverse reaction bp Disposition Summary: 03/25/22 11:42 Discharge Ordered Location: Home cp Condition: Stable cp Diagnosis - Vomiting cp - Presacral Mass cp Followup: cp - With: Jp Tobar MD - When: 2 - 3 days - Reason: vomiting, hematemesis Followup: cp - With: Cyrus Parmar MD - When: 2 - 3 days - Reason: sacral mass Followup: cp - With: Cyrus Parmar MD - When: 2 - 3 days - Reason: Presacral Mass Discharge Instructions: - Discharge Summary Sheet cp - Vomiting, Adult cp Forms: - Medication Reconciliation Form cp - Thank You Letter cp - Antibiotic Education cp - Prescription Opioid Use cp Prescriptions: - Protonix 40 mg Oral Tablet - take 1 tablet by ORAL route once daily; 30 tablet; Refills: 0, Product cp Selection Permitted - Zofran 4 mg Oral Tablet - take 1 tablet by ORAL route every 12 hours As needed; 20 tablet; Refills: 0, cp Product Selection Permitted Signatures: Dispatcher [employer] EDMS Teja Brice PA PA cp Peltier, Brian RN RN bp Awilda Spangler RN RN ap3 Corrections: (The following items were deleted from the chart) 08:35 08:33 Home Meds: lisinopril-hydrochlorothiazide Oral; ap3 ap3
--- NOTE | 2022-03-25 11:42 | ER ---
Nurse's Notes [facility] Name: Amber Osorio Age: 31 yrs Sex: Female : 1990 Arrival Date: 03/25/2022 Time: 08:22 Bed 20 Private MD: Diagnosis: Vomiting;Presacral Mass Presentation: 03/25 08:31 Chief complaint: Patient states: she vomited blood at approx 0730 this morning. patient ap3 states that now she continues to taste blood, and feels like there is something in her throat. patient reports drinking alcohol last night, but didn't get to a point where she was inebriated. Coronavirus screen: At this time, the client does not indicate any symptoms associated with coronavirus-19. Ebola Screen: No symptoms or risks identified at this time. Initial Sepsis Screen:. Initial Sepsis Screen: Does the patient meet any 2 criteria? HR > 90 bpm. No. Patient's initial sepsis screen is negative. Does the patient have a suspected source of infection? No. Patient's initial sepsis screen is negative. Risk Assessment: Do you want to hurt yourself or someone else? Patient reports no desire to harm self or others. Onset of symptoms was March 25, 2022 at 07:30. 08:31 Method Of Arrival: Ambulatory ap3 08:31 Acuity: MELISA 3 ap3 Triage Assessment: 08:35 General: Appears uncomfortable, Behavior is calm. Pain: Complains of pain in throat. ap3 EENT: Reports pain when swallowing. Neuro: Level of Consciousness is awake, alert, obeys commands, Oriented to person, place, time, situation. Cardiovascular: Patient's skin is warm and dry. Respiratory: Airway is patent Respiratory effort is even, unlabored. GI: Reports indigestion, nausea, vomiting. 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 - Social history:: Smoking status: Reported history of juuling and/or vaping. Patient uses alcohol, weekly. Screenin:37 Abuse screen: Denies threats or abuse. Nutritional screening: No deficits noted. ap3 Tuberculosis screening: No symptoms or risk factors identified. 08:37 Fall Risk None identified. bp Assessment: 08:37 General: SEE TRIAGE NOTE. bp 09:57 Reassessment: IVF INFUSING. bp 10:40 Reassessment: PT RETURNED FROM CT. GI: Abdomen is non-distended. bp Vital Signs: 08:31 BP 143 / 97; Pulse 106; Resp 19; Temp 98.2; Pulse Ox 99% ; Weight 99.79 kg; Height 5 ap3 ft. 4 in. (162.56 cm); 09:57 BP 136 / 102; Pulse 93; Resp 16; Pulse Ox 99% ; bp 10:40 BP 146 / 89; Pulse 79; Resp 16; Pulse Ox 100% ; bp 11:55 BP 136 / 91; Pulse 77; Resp 16; Pulse Ox 100% ; bp 08:31 Body Mass Index 37.76 (99.79 kg, 162.56 cm) ap3 ED Course: 08:22 Patient arrived in ED. as 08:25 Teja Brice PA is PHCP. cp 08:25 Lena Castaneda is Attending Physician. cp 08:33 Triage completed. ap3 08:37 Panda Byrd, RN is Primary Nurse. bp 08:37 Arm band placed on right wrist. ap3 08:37 Patient has correct armband on for positive identification. Bed in low position. Call bp light in reach. Side rails up X2. 08:42 Door closed. Noise minimized. Warm blanket given. mb7 08:42 Client placed on continuous cardiac and pulse oximetry monitoring. NIBP monitoring mb7 applied. Pulse ox on. 08:59 Inserted saline lock: 20 gauge in right antecubital area, using aseptic technique. mb7 Blood collected. 08:59 Strep Sent. mb7 08:59 COVID-19 SARS RT PCR (Document "Date of Onset" if Symptomatic) Sent. mb7 09:00 CBC with Diff Sent. mb7 09:00 CMP Sent. mb7 09:00 Lipase Sent. mb7 10:16 Urine Microscopic Only Sent. mb7 10:32 CT Abd/Pelvis - IV Contrast Only In Process Unspecified. EDMS 11:12 UDS Sent. mb7 11:40 Jp Tobar MD is Referral Physician. cp 11:41 Cyrus Parmar MD is Referral Physician. cp 11:44 Referral Physician role handed off by Cyrus Parmar MD cp 11:44 Cyrus Parmar MD is Referral Physician. cp Administered Medications: 09:00 Drug: NS 0.9% 1000 ml Route: IV; Rate: 1 bolus; Site: right antecubital; bp 11:55 Follow up: IV Status: Completed infusion; IV Intake: 1000ml bp 09:00 Drug: Zofran (Ondansetron) 4 mg Route: IVP; Site: right antecubital; bp 11:55 Follow up: Response: No adverse reaction bp 09:00 Drug: ProTONIX (pantoprazole) 40 mg Route: IVP; Site: right antecubital; bp 11:54 Follow up: Response: No adverse reaction bp Medication: 08:37 VIS not applicable for this client. bp Intake: 11:55 IV: 1000ml; Total: 1000ml. bp Outcome: 11:42 Discharge ordered by MD. cp 12:08 Patient left the ED. bp Signatures: Dispatcher [employer] EDMS Ayesha Carpio Corey, PA PA cp Panda Byrd, RN RN bp Awilda Spangler RN RN ap3 Kailey Reyes mb7 Corrections: (The following items were deleted from the chart) 08:35 08:33 Home Meds: lisinopril-hydrochlorothiazide Oral; ap3 ap3
[2022-03-25 12:17] VITALS: TEMP 98.2
[2022-03-25 12:22] VITALS: O2SAT 100
[2022-03-25 12:24] VITALS: BP 136/91
== END 2022-03-25 12:08 | disposition home or self-care (01) ==
LOC: ER 08:21
DX: R11.10 Vomiting, unspecified (principal); R22.2 Localized swelling, mass and lump, trunk; I10 Essential (primary) hypertension; F41.9 Anxiety disorder, unspecified; Z20.822 Contact with and (suspected) exposure to COVID-19; Z88.8 Allergy status to other drugs, medicaments and biological substances
CPT/HCPCS: 36415; 74177; 80053; 80307; 81003; 81015; 81025; 83690; 85025; 87070; 87081; 96361; 96374; 96375; 99284; C9113; J2405; J7030; Q9967; U0003